=== PATIENT | male | born 1980 | race American Indian/Alaskan Native ===

== ENCOUNTER 2018-07-14 13:01 | Emergency (ER) | payer SELFPAY ==
[2018-07-14 13:21] VITALS: BP 142/82
--- NOTE | 2018-07-14 13:22 | Emergency Department Report ---
Blank Doc - Documentation Documentation: 38 y old male presents with left sided chest pain worsens with movement x this am states he is getting better from URI. Still coughing intermittently, productive No prior med hx xr ,labs [facility] eval
--- NOTE | 2018-07-14 13:41 | Emergency Department Report ---
- General Chief Complaint: Upper Respiratory Infection Stated Complaint: CHEST PAIN Time Seen by Provider: 07/14/18 13:18 Source: patient Mode of arrival: Ambulatory Limitations: No Limitations - History of Present Illness Initial Comments: Ms. Dean is a 38-year-old gentleman without significant past medical history with associated tobacco abuse. He presents with productive cough, nasal drainage, sore throat. Minimal chest pain, specific at rest. 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 MD Complaint: sore throat, nasal congestion, other (hoarse voice, productive cough) -: Gradual, week(s) (1) Severity: mild Consistency: constant Worsens With: other (outdoor exposure) - Related Data Previous Rx's Medication Instructions Recorded Last Taken Type Doxycycline Hyclate [Doxycycline 100 mg PO Q12HR 7 Days #14 tab 07/14/18 Unknown Rx Hyclate TAB] Fluticasone [Flonase] 1 spray NS QDAY 30 Days #1 bottle 07/14/18 Unknown Rx Loratadine 10 mg PO DAILY 30 Days #30 capsule 07/14/18 Unknown Rx Prednisone [predniSONE 10 mg 10 mg PO .TAPER #1 tab.ds.pk 07/14/18 Unknown Rx (6-Day Pack, 21 Tabs)] Allergies Allergy/AdvReac Type Severity Reaction Status Date / Time No Known Allergies Allergy Unverified 07/14/18 13:03 ED Review of Systems ROS: Stated complaint: CHEST PAIN Other details as noted in HPI Constitutional: denies: fever, malaise Respiratory: cough. denies: shortness of breath, wheezing Cardiovascular: chest pain Neurological: denies: headache ED Past Medical Hx - Past Medical History Previous Medical History?: No - Surgical History Past Surgical History?: Yes Additional Surgical History: Left inquinal hernia repair - Social History Smoking Status: Current Every Day Smoker Substance Use Type: Alcohol, Cocaine, Marijuana, Other - Medications Home Medications: Home Medications Medication Instructions Recorded Confirmed Last Taken Type Doxycycline Hyclate [Doxycycline 100 mg PO Q12HR 7 Days #14 tab 07/14/18 Unknown Rx Hyclate TAB] Fluticasone [Flonase] 1 spray NS QDAY 30 Days #1 bottle 07/14/18 Unknown Rx Loratadine 10 mg PO DAILY 30 Days #30 capsule 07/14/18 Unknown Rx Prednisone [predniSONE 10 mg 10 mg PO .TAPER #1 tab.ds.pk 07/14/18 Unknown Rx (6-Day Pack, 21 Tabs)] ED Physical Exam - General Limitations: No Limitations General appearance: alert, in no apparent distress - Head Head exam: Present: atraumatic, normocephalic - Eye Eye exam: Present: normal appearance - ENT ENT exam: Present: mucous membranes moist - Neck Neck exam: Present: normal inspection, full ROM - Respiratory Respiratory exam: Present: normal lung sounds bilaterally. Absent: respiratory distress, wheezes, rales, rhonchi - Cardiovascular Cardiovascular Exam: Present: regular rate, normal rhythm, normal heart sounds. Absent: systolic murmur, diastolic murmur, rubs, gallop - GI/Abdominal GI/Abdominal exam: Present: soft, normal bowel sounds. Absent: distended, tenderness, guarding, rebound - Rectal Rectal exam: Present: deferred - Extremities Exam Extremities exam: Present: normal inspection - Back Exam Back exam: Present: normal inspection - Neurological Exam Neurological exam: Present: alert, oriented X3 - Psychiatric Psychiatric exam: Present: normal affect, normal mood - Skin Skin exam: Present: warm, dry, intact, normal color. Absent: rash ED Course Vital Signs 07/14/18 13:19 Temperature 98.3 F Pulse Rate 94 H Respiratory 18 Rate Blood Pressure 142/82 O2 Sat by Pulse 100 Oximetry ED Medical Decision Making - Medical Decision Making Diagnosis: Acute bronchitis and allergic rhinitis Antibiotics indicated. Due to history of tobacco abuse. Prescriptions: Doxycycline, prednisone, loratadine, Flonase Critical care attestation.: If time is entered above; I have spent that time in minutes in the direct care of this critically ill patient, excluding procedure time. ED Disposition Clinical Impression: Acute bronchitis, Allergic rhinitis Disposition: DC-01 TO HOME OR SELFCARE Is pt being admited?: No Does the pt Need Aspirin: No Condition: Stable Instructions: Acute Bronchitis (ED), How to Stop Smoking (ED) Prescriptions: Doxycycline Hyclate [Doxycycline Hyclate TAB] 100 mg PO Q12HR 7 Days #14 tab Fluticasone [Flonase] 1 spray NS QDAY 30 Days #1 bottle Loratadine 10 mg PO DAILY 30 Days #30 capsule Prednisone [predniSONE 10 mg (6-Day Pack, 21 Tabs)] 10 mg PO .TAPER #1 tab.ds.pk Referrals: [facility] [Outside] - 3-5 Days
== END 2018-07-14 13:54 | disposition home or self-care (01) ==
LOC: ED 13:01
DX: J30.9 Allergic rhinitis, unspecified (principal); J20.9 Acute bronchitis, unspecified; F17.200 Nicotine dependence, unspecified, uncomplicated; F12.10 Cannabis abuse, uncomplicated; F14.10 Cocaine abuse, uncomplicated

== ENCOUNTER 2019-04-24 11:31 | Emergency (ER) | payer BC ==
[2019-04-24 13:47] VITALS: BP 143/90
--- NOTE | 2019-04-24 13:50 | Emergency Department Report ---
- General Chief Complaint: Pain General Stated Complaint: FLU SYM Time Seen by Provider: 04/24/19 13:45 Source: patient Mode of arrival: Ambulatory Limitations: No Limitations - History of Present Illness Initial Comments: This is a 39-year-old male nontoxic, well nourished in appearance, no acute signs of distress presents to the ED with c/o of body aches, frontal sinus headache,, rhinorrhea, nasal congestion x2 days. Patient denies any cough. Patient denies any sick contact. Patient denies any recent travels, long car, recent hospital stays. Patient denies any calf pain or calf tenderness. Patient denies any chest pain, short of breath, fever, chills, nausea, vomiting, hemoptysis, numbness, tingling, headache or stiff neck. Patient denies any allergies significant past medical history. MD Complaint: rhinorrhea, nasal congestion, sinus pain -: days(s) (2) Severity: mild Severity scale (0 -10): 3 Quality: aching Consistency: constant Improves With: nothing Worsens With: nothing Associated Symptoms: rhinorrhea, nasal congestion, other (frontal sinus pain). denies: fever, chills, myalgias, diaphoresis, headache, sore throat, stiff neck, cough, chest pain, shortness of breath, abdominal pain, nausea, vomiting, diarrhea, dysuria, rash, confusion, right sweats, weight loss, epistaxis, hoarseness, ear pain - Related Data Previous Rx's Medication Instructions Recorded Last Taken Type Doxycycline Hyclate [Doxycycline 100 mg PO Q12HR 7 Days #14 tab 07/14/18 Unknown Rx Hyclate TAB] Fluticasone [Flonase] 1 spray NS QDAY 30 Days #1 bottle 07/14/18 Unknown Rx Loratadine 10 mg PO DAILY 30 Days #30 capsule 07/14/18 Unknown Rx Prednisone [predniSONE 10 mg 10 mg PO .TAPER #1 tab.ds.pk 07/14/18 Unknown Rx (6-Day Pack, 21 Tabs)] Amoxicillin/K Clav Tab [Augmentin 1 tab PO Q12HR #20 tab 04/24/19 Unknown Rx 875 mg] Allergies Allergy/AdvReac Type Severity Reaction Status Date / Time No Known Allergies Allergy Unverified 07/14/18 13:03 ED Review of Systems ROS: Stated complaint: FLU SYM Other details as noted in HPI Constitutional: denies: chills, fever Eyes: denies: eye pain, eye discharge, vision change ENT: congestion. denies: ear pain, throat pain Respiratory: denies: cough, shortness of breath, wheezing Cardiovascular: denies: chest pain, palpitations Endocrine: no symptoms reported Gastrointestinal: denies: abdominal pain, nausea, diarrhea Genitourinary: denies: urgency, dysuria Musculoskeletal: denies: back pain, joint swelling, arthralgia Skin: denies: rash, lesions Neurological: denies: headache, weakness, paresthesias Psychiatric: denies: anxiety, depression Hematological/Lymphatic: denies: easy bleeding, easy bruising ED Past Medical Hx - Past Medical History Previous Medical History?: No - Surgical History Additional Surgical History: Left inquinal hernia repair - Social History Smoking Status: Current Every Day Smoker Substance Use Type: Alcohol, Marijuana - Medications Home Medications: Home Medications Medication Instructions Recorded Confirmed Last Taken Type Doxycycline Hyclate [Doxycycline 100 mg PO Q12HR 7 Days #14 tab 07/14/18 Unknown Rx Hyclate TAB] Fluticasone [Flonase] 1 spray NS QDAY 30 Days #1 bottle 07/14/18 Unknown Rx Loratadine 10 mg PO DAILY 30 Days #30 capsule 07/14/18 Unknown Rx Prednisone [predniSONE 10 mg 10 mg PO .TAPER #1 tab.ds.pk 07/14/18 Unknown Rx (6-Day Pack, 21 Tabs)] Amoxicillin/K Clav Tab [Augmentin 1 tab PO Q12HR #20 tab 04/24/19 Unknown Rx 875 mg] ED Physical Exam - General Limitations: No Limitations General appearance: alert, in no apparent distress - Head Head exam: Present: atraumatic, normocephalic, other (positive frontal sinus pain) - Eye Eye exam: Present: normal appearance, PERRL, EOMI - ENT ENT exam: Present: normal exam, normal orophraynx - Neck Neck exam: Present: normal inspection, full ROM. Absent: tenderness, meningismus, lymphadenopathy - Respiratory Respiratory exam: Present: normal lung sounds bilaterally. Absent: respiratory distress, wheezes, rales, rhonchi, stridor, chest wall tenderness, accessory muscle use, decreased breath sounds, prolonged expiratory - Cardiovascular Cardiovascular Exam: Present: regular rate, normal rhythm, normal heart sounds. Absent: bradycardia, tachycardia, irregular rhythm, systolic murmur, diastolic murmur, rubs, gallop - Extremities Exam Extremities exam: Present: normal inspection, full ROM - Back Exam Back exam: Present: normal inspection, full ROM. Absent: tenderness, CVA tenderness (R), CVA tenderness (L), muscle spasm, paraspinal tenderness, vertebral tenderness, rash noted - Neurological Exam Neurological exam: Present: alert, oriented X3, normal gait - Expanded Neurological Exam Expanded Patient oriented to: Present: person, place, time Cranial nerves: EOM's Intact: Normal, Facial Sensation: Normal Cerebellar function: Finger to Nose: Normal Upper motor neuron: Pronator Drift: Normal, Sensory Extinction: Normal Motor strength exam: RUE: 5, LUE: 5, RLE: 5, LLE: 5 Best Eye Response (Dandre): (4) open spontaneously Best Motor Response (Wells): (6) obeys commands Best Verbal Response (Dandre): (5) oriented Wells Total: 15 - Psychiatric Psychiatric exam: Present: normal affect, normal mood - Skin Skin exam: Present: warm, dry, intact, normal color. Absent: rash ED Course Vital Signs 04/24/19 13:45 Temperature 98.5 F Pulse Rate 63 Respiratory 17 Rate Blood Pressure 143/90 O2 Sat by Pulse 100 Oximetry - Reevaluation(s) Reevaluation #1: 04/24/19 13:56 Patient is speaking in full sentences with no signs of distress noted. ED Medical Decision Making - Medical Decision Making 39-year-old male that presents with sinutisi. Patient is stable and was examined by me. Will treat with augmentin. Vital signs are stable. Patient was instructed to Follow-up with a primary care doctor in 3-5 days or if symptoms worsen and continue return to emergency room as soon as possible. At time of discharge, the patient does not seem toxic or ill in appearance. No acute signs of distress noted. Patient agrees to discharge treatment plan of care. No further questions noted by the patient. Critical care attestation.: If time is entered above; I have spent that time in minutes in the direct care of this critically ill patient, excluding procedure time. ED Disposition Clinical Impression: Sinusitis Qualifiers: Sinusitis location: frontal Chronicity: acute Recurrence: non-recurrent Qualified Code(s): J01.10 - Acute frontal sinusitis, unspecified Disposition: DC-01 TO HOME OR SELFCARE Is pt being admited?: No Does the pt Need Aspirin: No (sinu) Condition: Stable Instructions: Sinusitis (ED) Additional Instructions: Follow-up with a primary care doctor in 3-5 days or if symptoms worsen and continue return to emergency room as soon as possible. Prescriptions: Amoxicillin/K Clav Tab [Augmentin 875 mg] 1 tab PO Q12HR #20 tab Referrals: PRIMARY CAREMD [Referring] - 3-5 Days MARIA C MONTENEGRO MD [Staff Physician] - 3-5 Days [facility] [Outside] - 3-5 Days Forms: Work/School Release Form(ED)
== END 2019-04-24 14:39 | disposition home or self-care (01) ==
LOC: ED 11:31
DX: J32.9 Chronic sinusitis, unspecified (principal); F17.200 Nicotine dependence, unspecified, uncomplicated; F12.10 Cannabis abuse, uncomplicated; Z79.2 Long term (current) use of antibiotics; Z79.899 Other long term (current) drug therapy; Z98.890 Other specified postprocedural states
CPT/HCPCS: 99282